=== PATIENT | female | born 1930 | race Caucasian/White ===

== ENCOUNTER 2016-10-14 05:58 | Day surgery (SDC) | payer MEDICARE, MEDICAID ==
[~2016-10-14] VITALS: Ht 147.3 cm; Wt 61.8 kg
[~2016-10-14 05:58] MED LIST: ALBU8HFA4 IH; CLOP75 PO; FAMO20 PO; FIORC PO; LEVO100 PO; NAPR375T4 PO; ROSU20 PO
[2016-10-14] MEDS ORDERED: SODIUM CHLORIDE 0.9% 1,000 ML IV ONE (06:30)
[2016-10-14] MEDS ORDERED: MethylPREDNISolone SOD SUCC 125 MG/2 ML VIAL IVP ONE (08:30)
[2016-10-14] MEDS ORDERED: OXYGEN THERAPY IH SCH (20:00)
== END 2016-10-14 10:00 | disposition home or self-care (01) ==
LOC: SURGERY 05:58
PROVIDERS: ATTEND Internal Medicine Critical Care Medicine
DX: J38.4 Edema of larynx (principal); B37.0 Candidal stomatitis; I10 Essential (primary) hypertension; I25.10 Atherosclerotic heart disease of native coronary artery without angina pectoris
CPT/HCPCS: 31623; 31624; 87015; 87070; 87101; 87147; 87205; 87220; 88108; 88312; 93005